=== PATIENT | female | born 1990 | race African-American/Black ===

== ENCOUNTER 2017-06-07 12:50 | Emergency (ER) | payer OTHER ==
[~2017-06-07] VITALS: Ht 162.6 cm; Wt 72.6 kg
[~2017-06-07 12:50] MED LIST: ALBENZA200 MG PO; BACTROBAN CREAM30 G1 TOP; BENTYL 10 MG CA10 M1 PO; BUSPIRONE HCL10 MG PO; CLARITIN10 MG PO; CLEOCIN HCL300 MG PO; FLONASE16 GM NS; HYDROXYZINE HCL25 M1 PO; IRON325 PO; IVERMECTIN3 MG PO; KLOR-CON 1010 MEQ PO; LEXAPRO 10 MG T10 M2 PO; LINZESS290 MCG PO; NOHOMEMEDICATIONS; PERCOCET 5-3251 EACH PO; PREDNISONE 20 M20 M1 PO; PRENATABS OBN1 EACH; PROZAC20 MG PO; TESSALON200 MG PO; VENTOLIN HFA 1818 GM INH; VENTOLIN HFA INH8 GM IH; VITAMIN D1000 UNI1 PO; ZOLOFT50 MG PO; ZPAK PO
[2017-06-07 13:11] VITALS: BP 110/78
[2017-06-07] MEDS ORDERED: PRENATAL PO (13:16)
== END 2017-06-07 13:50 | disposition left against medical advice (07) ==
LOC: M.ERS 12:50
DX: Z53.21 Procedure and treatment not carried out due to patient leaving prior to being seen by health care provider (principal)

== ENCOUNTER 2017-07-16 02:26 | Emergency (ER) | payer OTHER ==
[~2017-07-16] VITALS: Ht 162.6 cm; Wt 65.8 kg
[~2017-07-16 02:26] MED LIST changes: +PRENATAL PO
[2017-07-16 02:55] LABS: ABSOLUTE BASOPHILS 0.1 thou/uL (0.0-0.2); ABSOLUTE EOSINOPHILS 0.2 thou/uL (0.0-0.7); ABSOLUTE LYMPHOCYTES 3.2 thou/uL (0.8-5.3); ABSOLUTE MONOCYTES 0.7 thou/uL (0.0-1.2); ABSOLUTE NEUTROPHILS 15.3 thou/uL (1.6-8.1); BASOPHILS 0.5 %; HEMATOCRIT 37.2 % (37.0-47.0); HEMOGLOBIN 12.3 gm/dL (12.0-15.0); LYMPHOCYTES 16.5 %; MCH 30.3 pg (26.0-34.0); MCHC 33.1 g/dL (28.0-37.0); MCV 91.4 fL (80.0-100.0); MONOCYTES 3.8 %; MPV 8.1 fl. (7.2-11.1); NUCLEATED RBCS 0 /100WBC; PLATELET COUNT* 327 thou/uL (150-400); POLYS 78.2 %; RBC 4.07 mil/uL (4.20-5.00); RDW-CV 13.6 % (10.5-14.5); WBC 19.6 thou/uL (4.0-11.0)
[2017-07-16 03:04] LABS: CALCIUM 8.5 mg/dL (8.5-10.1); CREATININE 0.6 mg/dL (0.6-1.3); POTASSIUM 3.8 mmol/L (3.5-5.1)
[2017-07-16 03:08] LABS: ALBUMIN 3.3 g/dL (3.4-5.0); TOTAL BILIRUBIN 0.6 mg/dL (<0.1-1.0); TOTAL PROTEIN 7.2 g/dL (6.4-8.2)
[2017-07-16 03:24] LABS: URINE BILIRUBIN NEGATIVE (Negative); URINE BLOOD NEGATIVE (Negative); URINE CLARITY CLEAR; URINE COLOR YELLOW; URINE GLUCOSE-RANDOM NEGATIVE (Negative); URINE LEUKOCYTES-REFLEX NEGATIVE (Negative); URINE NITRITE-REFLEX NEGATIVE (Negative); URINE PROTEIN TRACE (Negative); URINE SPECIFIC GRAVITY >= 1.030 (1.005-1.030)
[2017-07-16 03:30] LABS: AMP/METHAMP POSITIVE (Negative); BARBITURATES Negative (Negative); BENZODIAZEPINES Negative (Negative); COCAINE Negative (Negative); METHADONE Negative (Negative); OPIATES Negative (Negative); PCP Negative (Negative); THC Negative (Negative); URINE KETONES 3+ (Negative); URINE REDUCING SUBSTANCE NEGATIVE (Negative)
[2017-07-16 05:12] VITALS: BP 103/57
== END 2017-07-16 05:15 | disposition home or self-care (01) ==
LOC: M.ERS 02:26
PROVIDERS: Personal Emergency Response Attendant
DX: O26.892 Other specified pregnancy related conditions, second trimester (principal); E86.0 Dehydration; J45.909 Unspecified asthma, uncomplicated; F41.9 Anxiety disorder, unspecified; F32.9 Major depressive disorder, single episode, unspecified; F17.210 Nicotine dependence, cigarettes, uncomplicated; Z3A.19 19 weeks gestation of pregnancy; Z88.2 Allergy status to sulfonamides; Z88.1 Allergy status to other antibiotic agents

== ENCOUNTER 2017-07-29 14:51 | Emergency (ER) | payer OTHER ==
[~2017-07-29] VITALS: Ht 172.7 cm; Wt 81.7 kg
[2017-07-29 15:06] LABS: URINE BILIRUBIN NEGATIVE (Negative); URINE BLOOD NEGATIVE (Negative); URINE CLARITY CLEAR; URINE COLOR DARK YELLOW; URINE GLUCOSE-RANDOM NEGATIVE (Negative); URINE KETONES TRACE (Negative); URINE LEUKOCYTES-REFLEX NEGATIVE (Negative); URINE NITRITE-REFLEX NEGATIVE (Negative); URINE PROTEIN 2+ (Negative); URINE SPECIFIC GRAVITY >= 1.030 (1.005-1.030)
[2017-07-29 15:14] LABS: AMP/METHAMP POSITIVE (Negative); BARBITURATES Negative (Negative); BENZODIAZEPINES Negative (Negative); COCAINE Negative (Negative); METHADONE Negative (Negative); OPIATES Negative (Negative); PCP Negative (Negative); THC POSITIVE (Negative)
[2017-07-29 15:17] LABS: BACTERIA-REFLEX >30 Many /HPF (None Seen); HYALINE CASTS 4-10 Moderate /LPF (None Seen); SQUAMOUS 4-10 Moderate /LPF (0-3)
[2017-07-29 15:18] LABS: CRYSTALS None Seen /LPF (None Seen); MUCUS 0-3 Light strn/LPF (None Seen); URINE RBC 3-10 Few /HPF (0-2); URINE WBC-REFLEX 0-5 Rare /HPF (0-5)
[2017-07-29 15:24] LABS: ABSOLUTE BASOPHILS 0.1 thou/uL (0.0-0.2); ABSOLUTE EOSINOPHILS 0.2 thou/uL (0.0-0.7); ABSOLUTE LYMPHOCYTES 1.8 thou/uL (0.8-5.3); ABSOLUTE MONOCYTES 0.6 thou/uL (0.0-1.2); ABSOLUTE NEUTROPHILS 11.1 thou/uL (1.6-8.1); BASOPHILS 0.6 %; EOSINOPHILS 1.1 %; HEMATOCRIT 35.7 % (37.0-47.0); LYMPHOCYTES 12.9 %; MCHC 33.8 g/dL (28.0-37.0); MCV 91.9 fL (80.0-100.0); MONOCYTES 4.6 %; MPV 8.6 fl. (7.2-11.1); NUCLEATED RBCS 0 /100WBC; PLATELET COUNT* 290 thou/uL (150-400); POLYS 80.8 %; RBC 3.88 mil/uL (4.20-5.00); RDW-CV 14.2 % (10.5-14.5); WBC 13.7 thou/uL (4.0-11.0)
[2017-07-29 15:33] LABS: ANION GAP 12 mmol/L (7-16); BUN 11 mg/dL (7-18); CALCIUM 8.4 mg/dL (8.5-10.1); CHLORIDE 101 mmol/L (98-107); CO2 24 mmol/L (21-32); CREATININE 0.7 mg/dL (0.6-1.3); GLUCOSE 103 mg/dL (70-99); POTASSIUM 3.4 mmol/L (3.5-5.1); SODIUM 137 mmol/L (136-145)
[2017-07-29 15:40] LABS: ALBUMIN 3.3 g/dL (3.4-5.0); ALKALINE PHOSPHATASE 54 U/L (46-116); SGOT 16 U/L (15-37); SGPT 18 U/L (30-65); TOTAL BILIRUBIN 0.7 mg/dL (<0.1-1.0); TOTAL PROTEIN 7.4 g/dL (6.4-8.2); TROPONIN-I LEVEL <0.06 ng/mL (<0.06)
[2017-07-29 15:52] LABS: ACETAMINOPHEN < 2 ug/mL (10-30); ALCOHOL < 10 mg/dL (<10); SALICYLATE < 2.8 mg/dL (2.8-20.0)
[2017-07-29 22:28] VITALS: BP 119/94
--- NOTE | 2017-07-30 12:46 | EKG ---
[place] [address] ELECTROCARDIOGRAM REPORT Name: DARRYL ALLAN Room: [facility]#: [id number] Admission: 07/29/17 Attend Phys: Discharge: 07/29/17 Date of : [birth year] Report #: [id number] THIS REPORT FOR: //name// [facility] ED Test Date: 2017-07-29 Test Time: 15:17:05 Pat Name: DARRYL ALLAN Department: Room: Gender: F Copyright Manager: Bernardo FARNSWORTH : 1990 Requested By: Prasanth Elliott Order Number: [id number] MD: Pawan David Measurements Intervals [place] Rate: 111 P: 58 AR: 126 QRS: 40 QRSD: 80 T: 43 QT: 349 QTc: 474 Interpretive Statements Sinus tachycardia Compared to ECG 02/15/2017 15:45:27 No significant changes Electronically Signed On 07-30-2017 12:46:26 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
== END 2017-07-29 22:28 ==
LOC: M.ERS 14:51
PROVIDERS: Emergency Medicine Emergency Medical Services
DX: O99.341 Other mental disorders complicating pregnancy, first trimester (principal); F28 Other psychotic disorder not due to a substance or known physiological condition; F15.10 Other stimulant abuse, uncomplicated; J45.909 Unspecified asthma, uncomplicated; F41.9 Anxiety disorder, unspecified; F32.9 Major depressive disorder, single episode, unspecified; F17.210 Nicotine dependence, cigarettes, uncomplicated; Z88.2 Allergy status to sulfonamides; Z88.1 Allergy status to other antibiotic agents; Z88.6 Allergy status to analgesic agent; Z3A.00 Weeks of gestation of pregnancy not specified

== ENCOUNTER 2018-05-27 14:59 | Emergency (ER) | payer OTHER, MEDICAID ==
[~2018-05-27] VITALS: Ht 162.6 cm; Wt 110.2 kg
[2018-05-27 15:32] LABS: PLATELET COUNT* 361 thou/uL (150-400)
[2018-05-27 15:36] LABS: ABSOLUTE EOSINOPHILS 0.2 thou/uL (0.0-0.7); ABSOLUTE LYMPHOCYTES 2.7 thou/uL (0.8-5.3); ABSOLUTE MONOCYTES 0.7 thou/uL (0.0-1.2); ABSOLUTE NEUTROPHILS 3.5 thou/uL (1.6-8.1); BASOPHILS 0.5 %; HEMATOCRIT 40.9 % (37.0-47.0); HEMOGLOBIN 13.6 gm/dL (12.0-15.0); LYMPHOCYTES 37.8 %; MCH 30.5 pg (26.0-34.0); MCHC 33.2 g/dL (28.0-37.0); MCV 91.9 fL (80.0-100.0); MONOCYTES 9.2 %; MPV 8.5 fl. (7.2-11.1); NUCLEATED RBCS 0 /100WBC; POLYS 49.5 %; RBC 4.45 mil/uL (4.20-5.00); RDW-CV 13.4 % (10.5-14.5); WBC 7.1 thou/uL (4.0-11.0)
[2018-05-27 15:44] LABS: APTT 23.8 Seconds (25.0-31.3)
[2018-05-27 15:45] LABS: ANION GAP 18 mmol/L (7-16); BUN 13 mg/dL (7-18); CALCIUM 8.8 mg/dL (8.5-10.1); CHLORIDE 104 mmol/L (98-107); CO2 21 mmol/L (21-32); CREATININE 1.2 mg/dL (0.6-1.3); GLUCOSE 121 mg/dL (70-99); POTASSIUM 3.2 mmol/L (3.5-5.1); SODIUM 143 mmol/L (136-145)
[2018-05-27 15:50] LABS: URINE BILIRUBIN NEGATIVE (Negative); URINE BLOOD TRACE (Negative); URINE CLARITY CLEAR; URINE COLOR YELLOW; URINE GLUCOSE-RANDOM NEGATIVE (Negative); URINE KETONES NEGATIVE (Negative); URINE LEUKOCYTES-REFLEX NEGATIVE (Negative); URINE NITRITE-REFLEX NEGATIVE (Negative); URINE PROTEIN NEGATIVE (Negative); URINE SPECIFIC GRAVITY 1.015 (1.005-1.030); URINE UROBILINOGEN 0.2 E.U./dl (0.2-1.0)
[2018-05-27 15:50] LABS: ACETAMINOPHEN < 2 ug/mL (10-30); ALCOHOL < 10 mg/dL (<10); SALICYLATE < 2.8 mg/dL (2.8-20.0)
[2018-05-27 16:02] LABS: AMP/METHAMP POSITIVE (Negative); BARBITURATES Negative (Negative); BENZODIAZEPINES Negative (Negative); COCAINE Negative (Negative); METHADONE Negative (Negative); OPIATES Negative (Negative); PCP Negative (Negative); THC Negative (Negative)
[2018-05-27 16:18] LABS: ALBUMIN 3.6 g/dL (3.4-5.0); ALKALINE PHOSPHATASE 71 U/L (46-116); CK-MB MASS 1.5 ng/mL (<0.5-3.6); NT-PRO BRAIN NAT PEPTIDE 46 pg/mL (<300); SGOT 18 U/L (15-37); SGPT 25 U/L (30-65); TOTAL BILIRUBIN 0.4 mg/dL (<0.1-1.0); TOTAL PROTEIN 7.7 g/dL (6.4-8.2); TROPONIN-I LEVEL <0.06 ng/mL (<0.06)
[2018-05-27 23:20] VITALS: BP 124/73
--- NOTE | 2018-05-28 13:59 | EKG ---
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
== END 2018-05-27 23:20 | disposition home or self-care (01) ==
LOC: M.ERS 14:59
PROVIDERS: Family Medicine
DX: F15.10 Other stimulant abuse, uncomplicated (principal); R56.9 Unspecified convulsions; Z88.2 Allergy status to sulfonamides; R41.82 Altered mental status, unspecified